=== PATIENT | male | born 1955 ===

== ENCOUNTER 2021-03-26 23:56 | Inpatient (IN) ==
[2021-03-27] MEDS ORDERED: methylPREDNISolone 125 mg 2 ML VIAL IV ONE (00:51)
[2021-03-27] MEDS ORDERED: Albuterol 0.5% CONC CONTINUOUS NEB.SOL 5 mg/ml 20 ml BOT INH ONE (00:51)
[2021-03-27 00:53] LABS: ABS Basophils 0.1 10^3/ul (0-0.2); ABS Eosinophils 0.7 10^3/ul (0-0.6); ABS Lymphocytes 1.1 10^3/ul (1.0-4.8); ABS Monocytes 0.8 10^3/ul (0-0.8); ABS Neutrophils 7.4 10^3/ul (1.5-7.7); Eosinophil % 6.6 %; Hematocrit 42 % (42-52); Hemoglobin 14.7 g/dL (14.0-18.0); Lymphocyte % 11.2 %; Mean Corpuscular HGB Conc 35 g/dL (31-36); Mean Corpuscular Hemoglobin 34 pg (27-31); Mean Corpuscular Volume 97 fL (80-94); Mean Platelet Volume 7.2 fL (7.4-10.4); Platelet Count 217 10^3/uL (150-450); Red Blood Count 4.38 10^6 /uL (4.18-5.48); Red Cell Distribution Width 14 % (10-15); White Blood Count 10.1 10^3/uL (3.5-10.8)
[2021-03-27 01:11] LABS: Albumin 4.3 g/dL (3.2-5.2); Albumin/Globulin Ratio 1.7 (1-3); C Reactive Protein 1.89 mg/L (<8.01); Calcium 9.8 mg/dL (8.6-10.3); Globulin 2.6 g/dL (2-4); Potassium 4.5 mmol/L (3.5-5.0); Total Bilirubin 0.7 mg/dL (0.2-1.0); Total Protein 6.9 g/dL (6.4-8.9); eGFR CKD-EPI 98.7 (>60)
[2021-03-27] MEDS ORDERED: Albuterol HFA INHALER 8 gm MDI INH PRN (05:18)
[2021-03-27] MEDS ORDERED: Iohexol 350 (CONTRAST) 500 ML MDV IV ONE (05:38)
[2021-03-27] MEDS: Albuterol 2.5mg/3 ml (0.083%) NEB.SOLN INH SCH ×2 (06:08→08:23)
[2021-03-27] MEDS ORDERED: Enoxaparin 40 MG/0.4 ML SYR SUBCUT SCH (09:00)
[2021-03-27] MEDS: SPIRIVA Respimat (tiotropium) 2.5 mcg/inh Inhaler INH SCH (09:18)
[2021-03-27] MEDS: VARENICLINE 0.5 MG TAB(NF) PO SCH ×2 (10:23→21:34)
[2021-03-27] MEDS: Pentoxifylline CR 400 mg TAB 400 MG PO SCH ×3 (10:24→17:08)
[2021-03-27] MEDS: methylPREDNISolone SOD 40 mg/ml 1 ml VIAL IV SCH (12:47)
[2021-03-28] MEDS: methylPREDNISolone SOD 40 mg/ml 1 ml VIAL IV SCH ×3 (00:05→23:54)
[2021-03-28 05:59] LABS: Calcium 9.3 mg/dL (8.6-10.3); Magnesium 1.8 mg/dL (1.9-2.7); Potassium 4.7 mmol/L (3.5-5.0)
[2021-03-28] MEDS: Pentoxifylline CR 400 mg TAB 400 MG PO SCH ×3 (09:05→18:06)
[2021-03-28] MEDS: VARENICLINE 0.5 MG TAB(NF) PO SCH ×2 (09:06→21:26)
[2021-03-28] MEDS: SPIRIVA Respimat (tiotropium) 2.5 mcg/inh Inhaler INH SCH (09:46)
[2021-03-28] MEDS ORDERED: Albuterol/Ipratropium NEB.SOL (2.5/0.5 MG) 3 ML NEB.SOLN INH PRN (11:16)
[2021-03-28] MEDS: Mometasone/Formoter 200/5 MDI INH SCH ×3 (13:11→21:42)
[2021-03-29 05:37] LABS: Hematocrit 41 % (42-52); Hemoglobin 14.4 g/dL (14.0-18.0); Mean Corpuscular HGB Conc 35 g/dL (31-36); Mean Corpuscular Hemoglobin 34 pg (27-31); Mean Corpuscular Volume 97 fL (80-94); Mean Platelet Volume 7.5 fL (7.4-10.4); Platelet Count 203 10^3/uL (150-450); Red Blood Count 4.23 10^6 /uL (4.18-5.48); Red Cell Distribution Width 14 % (10-15); White Blood Count 9.8 10^3/uL (3.5-10.8)
[2021-03-29 05:54] LABS: Calcium 9.2 mg/dL (8.6-10.3); Magnesium 1.9 mg/dL (1.9-2.7); eGFR CKD-EPI 102.1 (>60)
[2021-03-29] MEDS: Pentoxifylline CR 400 mg TAB 400 MG PO SCH ×2 (08:07→13:05)
[2021-03-29] MEDS: VARENICLINE 0.5 MG TAB(NF) PO SCH (08:10)
[2021-03-29] MEDS: Mometasone/Formoter 200/5 MDI INH SCH (08:25)
[2021-03-29] MEDS ORDERED: SPIRIVA Respimat (tiotropium) 2.5 mcg/inh Inhaler INH SCH (12:00)
[2021-03-29] MEDS: methylPREDNISolone SOD 40 mg/ml 1 ml VIAL IV SCH (13:05)
[2021-03-29 13:16] VITALS: BP 121/66
== END 2021-03-29 15:50 | disposition home or self-care (01) | DRG 191 ==
LOC: ED 23:56 → SUATTDRO 03-27 04:05 → EDHOLD 03-27 04:05 → MEDTELE 03-27 08:06
PROVIDERS: ADMIT Hospitalist; ATTEND Internal Medicine

== ENCOUNTER 2021-04-10 19:52 | Inpatient (IN) ==
[2021-04-10] MEDS ORDERED: Magnesium Sulfate 2 gm BAG 2 GM/50 ML BAG IVPB ONE (22:12)
[2021-04-10] MEDS ORDERED: methylPREDNISolone 125 mg 2 ML VIAL IV ONE (22:12)
[2021-04-10] MEDS ORDERED: Albuterol HFA INHALER 8 gm MDI INH ONE (22:13)
[2021-04-10 23:09] LABS: ABS Eosinophils 0.5 10^3/ul (0-0.6); ABS Lymphocytes 1.7 10^3/ul (1.0-4.8); ABS Monocytes 0.7 10^3/ul (0-0.8); ABS Neutrophils 11.3 10^3/ul (1.5-7.7); Eosinophil % 3.8 %; Hematocrit 40 % (42-52); Hemoglobin 13.9 g/dL (14.0-18.0); Lymphocyte % 11.7 %; Mean Corpuscular HGB Conc 35 g/dL (31-36); Mean Corpuscular Hemoglobin 34 pg (27-31); Mean Corpuscular Volume 99 fL (80-94); Platelet Count 254 10^3/uL (150-450); Red Blood Count 4.08 10^6 /uL (4.18-5.48); Red Cell Distribution Width 15 % (10-15); White Blood Count 14.3 10^3/uL (3.5-10.8)
[2021-04-10 23:26] LABS: Albumin 4.2 g/dL (3.2-5.2); Albumin/Globulin Ratio 1.6 (1-3); C Reactive Protein 4.61 mg/L (<8.01); Calcium 9.5 mg/dL (8.6-10.3); Globulin 2.7 g/dL (2-4); Potassium 4.1 mmol/L (3.5-5.0); Total Bilirubin 0.6 mg/dL (0.2-1.0); Total Protein 6.9 g/dL (6.4-8.9); eGFR CKD-EPI 97.6 (>60)
[2021-04-10 23:29] LABS: Rapid COVID-19 Molecular Undetected (Undetected); Troponin I 0.01 ng/mL (<0.03)
[2021-04-11] MEDS ORDERED: Albuterol HFA INHALER 8 gm MDI INH ONE (01:36)
[2021-04-11] MEDS ORDERED: Albuterol HFA INHALER 8 gm MDI INH PRN (03:04)
[2021-04-11] MEDS: Mometasone/Formoter 200/5 MDI INH SCH ×2 (08:23→19:49)
[2021-04-11] MEDS: SPIRIVA Respimat (tiotropium) 2.5 mcg/inh Inhaler INH SCH (08:24)
[2021-04-11] MEDS ORDERED: methylPREDNISolone SOD 40 mg/ml 1 ml VIAL IV SCH (09:00)
[2021-04-11] MEDS: Pentoxifylline CR 400 mg TAB 400 MG PO SCH ×3 (09:26→17:26)
[2021-04-12 06:54] LABS: ABS Lymphocytes 1.3 10^3/ul (1.0-4.8); ABS Monocytes 0.8 10^3/ul (0-0.8); ABS Neutrophils 16.2 10^3/ul (1.5-7.7); Eosinophil % 0.3 %; Hematocrit 39 % (42-52); Hemoglobin 13.3 g/dL (14.0-18.0); Mean Corpuscular HGB Conc 34 g/dL (31-36); Mean Corpuscular Hemoglobin 34 pg (27-31); Mean Corpuscular Volume 99 fL (80-94); Mean Platelet Volume 7.2 fL (7.4-10.4); Platelet Count 244 10^3/uL (150-450); Red Blood Count 3.95 10^6 /uL (4.18-5.48); Red Cell Distribution Width 14 % (10-15); White Blood Count 18.4 10^3/uL (3.5-10.8)
[2021-04-12 07:07] LABS: Calcium 9.4 mg/dL (8.6-10.3); Magnesium 1.9 mg/dL (1.9-2.7); Potassium 4.6 mmol/L (3.5-5.0); eGFR CKD-EPI 101.2 (>60)
[2021-04-12] MEDS: Mometasone/Formoter 200/5 MDI INH SCH ×2 (07:55→20:03)
[2021-04-12] MEDS: Pentoxifylline CR 400 mg TAB 400 MG PO SCH ×3 (09:01→17:38)
[2021-04-12] MEDS: SPIRIVA Respimat (tiotropium) 2.5 mcg/inh Inhaler INH SCH (09:01)
[2021-04-13 06:27] LABS: ABS Basophils 0.1 10^3/ul (0-0.2); ABS Lymphocytes 1.9 10^3/ul (1.0-4.8); ABS Monocytes 0.8 10^3/ul (0-0.8); ABS Neutrophils 8.3 10^3/ul (1.5-7.7); Eosinophil % 0.4 %; Hematocrit 39 % (42-52); Hemoglobin 13.1 g/dL (14.0-18.0); Mean Corpuscular HGB Conc 34 g/dL (31-36); Mean Corpuscular Hemoglobin 34 pg (27-31); Mean Corpuscular Volume 98 fL (80-94); Mean Platelet Volume 6.8 fL (7.4-10.4); Nucleated Red Blood Cells % 0.1; Platelet Count 228 10^3/uL (150-450); Red Blood Count 3.91 10^6 /uL (4.18-5.48); Red Cell Distribution Width 15 % (10-15); White Blood Count 11.1 10^3/uL (3.5-10.8)
[2021-04-13 06:43] LABS: Calcium 9.4 mg/dL (8.6-10.3); Magnesium 1.9 mg/dL (1.9-2.7); Potassium 4.5 mmol/L (3.5-5.0); eGFR CKD-EPI 95.8 (>60)
[2021-04-13] MEDS: Mometasone/Formoter 200/5 MDI INH SCH (08:50)
[2021-04-13] MEDS: SPIRIVA Respimat (tiotropium) 2.5 mcg/inh Inhaler INH SCH (08:50)
[2021-04-13] MEDS: Pentoxifylline CR 400 mg TAB 400 MG PO SCH (08:51)
[2021-04-13 11:24] VITALS: BP 104/67
== END 2021-04-13 12:05 | disposition home or self-care (01) | DRG 190 ==
LOC: ED 19:52 → SUATTDRO 04-11 02:53 → EDHOLD 04-11 02:53 → SSU 04-11 04:28
PROVIDERS: ADMIT Internal Medicine; ATTEND Student in an Organized Health Care Education/Training Program